=== PATIENT | female | born 1995 | race Two or more races ===

== ENCOUNTER 2018-01-30 20:09 | Emergency (ER) | payer SELFPAY ==
[~2018-01-30] VITALS: Ht 149.9 cm; Wt 45.4 kg
[2018-01-30 22:56] LABS: BASOPHILS % (AUTO) 0.3 % (0.0-2.0); HEMATOCRIT 38 % (33-45); HEMOGLOBIN 12.4 g/dL (11.5-14.8); LYMPHOCYTES # (AUTO) 2.3 /CMM (0.8-4.8); LYMPHOCYTES % (AUTO) 20.9 % (20.0-44.0); MEAN CORPUSCULAR HGB CONC 33 g/dl (31.0-36.0); MEAN CORPUSCULAR VOLUME 89 fL (82-100); MONOCYTES # (AUTO) 0.8 /CMM (0.1-1.30); MONOCYTES % (AUTO) 7.5 % (2.0-12.0); NEUTROPHILS # (AUTO) 7.6 /CMM (1.8-8.9); NEUTROPHILS % (AUTO) 69.3 % (43.0-81.0); PLATELET COUNT (AUTO) 249 /CMM (150-450); RDW COEFFICIENT OF VARIATION 13.6 (11.5-15.0); RED BLOOD CELL COUNT(AUTO) 4.23 MIL/uL (4.0-5.2)
[2018-01-30 23:20] LABS: ALANINE AMINOTRANSFERASE 16 U/L (12-78); ALBUMIN 3.5 g/dL (3.4-5.0); ALKALINE PHOSPHATASE 44 U/L (46-116); ASPARTATE AMINOTRANSFERASE 13 U/L (15-37); BILIRUBIN,DIRECT 0.1 mg/dL (0.0-0.2); BILIRUBIN,TOTAL 0.4 mg/dL (0.2-1.0); CALCIUM, SERUM 8.4 mg/dL (8.5-10.1); CARBON DIOXIDE 27 mmol/L (21-32); CHLORIDE 107 mmol/L (98-107); CREATININE 0.5 mg/dL (0.6-1.3); GLUCOSE 105 mg/dL (74-106); POTASSIUM 3.5 mmol/L (3.5-5.1); SODIUM SERUM 141 mmol/L (136-145); TOTAL PROTEIN, SERUM 6.5 g/dL (6.4-8.2); UREA NITROGEN, BLOOD 14 mg/dL (7-18)
[2018-01-30 23:21] LABS: ACETAMINOPHEN 0 ug/ml (10-30); ALCOHOL, BLOOD < 3 mg/dL (0-0); SALICYLATE 2.7 mg/dL (2.8-20.0)
[2018-01-31 00:14] VITALS: BP 100/65
== END 2018-01-31 00:14 | disposition home or self-care (01) ==
LOC: ER 20:11
DX: Z00.00 Encounter for general adult medical examination without abnormal findings (principal)
CPT/HCPCS: 36415; 80048; 80076; 80329; 85025; 99285; A4606; A6402; G0480 ×2; Z7610

== ENCOUNTER 2019-06-19 11:49 | Emergency (ER) | payer OTHER ==
[~2019-06-19] VITALS: Ht 149.9 cm; Wt 45.4 kg
--- NOTE | 2019-06-19 11:59 | NUR ---
patient biblapd for medical clearance prior booking to [facility]. On room air, breathing evenly and unlabored. will continue to monitor accordingly.
[2019-06-19 13:03] VITALS: BP 118/71
--- NOTE | 2019-06-19 13:03 | NUR ---
discharge patient in custody, in no ditress, accompanied by [employer], denies any pain or discomfort at this time.
== END 2019-06-19 13:03 ==
LOC: ER 11:51
DX: H57.04 Mydriasis (principal); F19.10 Other psychoactive substance abuse, uncomplicated; R05 Cough; Z59.0 Homelessness; Z02.89 Encounter for other administrative examinations
CPT/HCPCS: 71045-TC